=== PATIENT | female | born 1960 | race Two or more races ===

== ENCOUNTER 2020-03-14 14:16 | Emergency (ER) | payer MEDICAID, OTHER ==
[~2020-03-14] VITALS: Ht 157.5 cm; Wt 77.1 kg
[2020-03-14] MEDS ORDERED: ACETAMINOPHEN 325 MG TAB PO ONE (15:00)
[2020-03-14 16:40] VITALS: BP 106/71
== END 2020-03-14 18:00 | disposition home or self-care (01) ==
LOC: EDBD 14:16 → ER 14:16
DX: J06.9 Acute upper respiratory infection, unspecified (principal); R50.9 Fever, unspecified
CPT/HCPCS: 71045; 93005

== ENCOUNTER 2021-07-07 20:28 | Emergency (ER) | payer MEDICAID ==
[~2021-07-07] VITALS: Ht 157.5 cm; Wt 81.6 kg
[2021-07-07 23:41] VITALS: BP 146/80
== END 2021-07-08 01:57 | disposition home or self-care (01) ==
LOC: ER 20:30
DX: S82.891A Other fracture of right lower leg, initial encounter for closed fracture (principal); W18.39XA Other fall on same level, initial encounter; Y93.89 Activity, other specified; Y92.89 Other specified places as the place of occurrence of the external cause; Y99.8 Other external cause status
CPT/HCPCS: 29515; 73610

== ENCOUNTER 2022-07-12 11:29 | Emergency (ER) | payer MEDICAID ==
[~2022-07-12] VITALS: Ht 157.5 cm; Wt 79.3 kg
[2022-07-12 14:10] VITALS: BP 111/68
[2022-07-12] MEDS ORDERED: PHEN-430 PO (15:40)
[2022-07-12] MEDS ORDERED: OSEL75CA5 PO (15:40)
== END 2022-07-12 16:00 | disposition home or self-care (01) ==
LOC: ER 11:29
DX: J10.1 Influenza due to other identified influenza virus with other respiratory manifestations (principal); Z20.822 Contact with and (suspected) exposure to COVID-19
CPT/HCPCS: 36415; 87426; 87804